=== PATIENT | female | born 1980 | race African-American/Black ===

== ENCOUNTER 2019-05-30 21:05 | Emergency (ER) | payer MEDICAID ==
[~2019-05-30] VITALS: Ht 160 cm; Wt 95.0 kg
[2019-05-30 21:14] VITALS: BP 125/71
== END 2019-05-30 23:05 | disposition left against medical advice (07) ==
LOC: ER 21:05
DX: R07.9 Chest pain, unspecified (principal); Z53.21 Procedure and treatment not carried out due to patient leaving prior to being seen by health care provider
CPT/HCPCS: 93005